=== PATIENT | female | born 1925 | race Caucasian/White ===

== ENCOUNTER 2017-01-10 09:22 | Inpatient (IN) | payer OTHER, BC ==
[~2017-01-10] VITALS: Ht 157.5 cm; Wt 54.0 kg
[~2017-01-10 09:22] MED LIST: COUMADIN1 MG PO; DUONEB3 ML IH; FOSAMAX70 M1 PO; Levothroid,Synthroid PO; Lovenox SC; NORCO 5/3251 TABLET PO; OYST-CAL D, OS500 M1 PO; PAXIL10 MG PO; PROAIR HFA8.5 GM IH; SALINE MIST45 ML BOTH NARES; SENOKOT S,PE1 TABLET PO; SYNTHROID100 MCG PO; SYNTHROID75 MCG PO; THERAGRAN1 TABLET PO; Tylenol Regular Stre PO; Vicodin,Norco 5/325 PO; XANAX PO; XANAX0.25 MG PO; Xalatan 0.005% Ophth
[2017-01-10 10:40] LABS: EOSINOPHIL (%) 1.2 % (0-5); EOSINOPHIL COUNT 0.1 K/uL (0-0.3); HEMATOCRIT 40.2 % (36.0-46.0); IMMATURE GRANULOCYTE (%) 0.5 % (0.0-0.7); INSTRUMENT ABS NEUTROPHIL CT 6.1 K/uL; LYMPHOCYTE COUNT 1.4 K/uL (1.0-2.8); MCH 30.2 PG (29.0-34.0); MCHC 32.1 G/DL (30.0-36.0); MCV 94.1 FL (83-99); MEAN PLAT.VOLUME 10.1 uM^3 (9.5-12.4); MONOCYTE (%) 6.4 % (3-12); MONOCYTE COUNT 0.5 K/uL (0-0.8); NEUTROPHIL (%) 74.5 % (45-76); NEUTROPHIL COUNT 6.1 K/uL (1.8-6.4); PLATELET COUNT 293 K/uL (156-360); RBC DIS.WIDTH-CV 13.1 % (11.8-14.6); RBC DIS.WIDTH-SD 44.9 % (39-53); RED BLOOD COUNT 4.27 M/uL (3.80-5.20); WHITE BLOOD COUNT 8.2 K/uL (4.1-10.2)
[2017-01-10 11:04] LABS: TROP-I INTERPRETATION NEGATIVE; TROPONIN-I 0.02 ng/mL (0.0-0.30)
[2017-01-10 12:06] LABS: CHLORIDE 99 mEq/L (99-109); SODIUM 138 mEq/L (136-147)
[2017-01-10 12:08] LABS: GLUCOSE 86 mg/dL (70-99)
[2017-01-10 12:10] LABS: ANION GAP 11 MEQ/L (2-14); TOTAL BILIRUBIN 0.7 mg/dL (0.0-1.0)
[2017-01-10 12:12] LABS: ALKALINE PHOSPHATASE 93 IU/L (3-129); GFR ESTIMATE (CALCULATED) > 59 mL/min/
[2017-01-10 12:13] LABS: UREA NITROGEN (BUN) 14 mg/dL (9-23)
[2017-01-10 14:26] LABS: ADD MIUA? YES; BILIRUBIN NEGATIVE; BLOOD NEGATIVE; COLOR YELLOW ((YELLOW)); GLUCOSE (STRIP) NEGATIVE; KETONES 20; LEUKOCYTES TRACE; NITRITE NEGATIVE; PROTEIN (STRIP) NEGATIVE
[2017-01-10 14:33] LABS: BACTERIA NONE SEEN /HPF; EPITHELIAL CELLS RARE /HPF; MUCUS NONE SEEN /LPF; RED BLOOD CELLS 0-5 /HPF (0-5); UCUL ADDED? NO; WHITE BLOOD CELLS 0-5 /HPF (0-5)
[2017-01-10 14:47] LABS: SPECIFIC GRAVITY 1.068 (1.000-1.030)
[2017-01-10] MEDS ORDERED: SYSTANE BALANCE10 ML BOTH EYES (15:10)
[2017-01-10 17:51] VITALS: BP 127/79
[2017-01-10 19:42] LABS: TROP-I INTERPRETATION NEGATIVE; TROPONIN-I < 0.01 ng/mL (0.0-0.30)
[2017-01-10 20:00] VITALS: BP 115/55
[2017-01-11] VITALS: BP 122/66
[2017-01-11 03:51] LABS: CHLORIDE 106 mEq/L (99-109); POTASSIUM 4.1 mEq/L (3.7-5.4); SODIUM 138 mEq/L (136-147)
[2017-01-11 03:53] LABS: GLUCOSE 74 mg/dL (70-99)
[2017-01-11 03:55] LABS: ANION GAP 8 MEQ/L (2-14)
[2017-01-11 03:57] LABS: GFR ESTIMATE (CALCULATED) > 59 mL/min/
[2017-01-11 03:58] LABS: UREA NITROGEN (BUN) 13 mg/dL (9-23)
[2017-01-11 04:00] VITALS: BP 128/63
[2017-01-11 04:05] LABS: TROP-I INTERPRETATION NEGATIVE; TROPONIN-I < 0.01 ng/mL (0.0-0.30)
[2017-01-11 07:57] VITALS: BP 143/74
[2017-01-11 11:31] VITALS: BP 109/57
[2017-01-11 14:52] VITALS: BP 120/69
[2017-01-11 20:00] VITALS: BP 120/69
[2017-01-12] VITALS: BP 133/73
[2017-01-12 03:44] VITALS: BP 150/75
[2017-01-12 07:58] VITALS: BP 149/79
[2017-01-12] MEDS ORDERED: AUGMENTIN875 MG PO (09:36)
[2017-01-12] MEDS ORDERED: LIDODERM 5% P1 PATCH TD (10:39)
[2017-01-12 11:25] VITALS: BP 148/78
== END 2017-01-12 11:56 | disposition home health service (06) | DRG 190 ==
LOC: EME 09:22 → EDOF 14:46 → 5SOUTH 16:57
PROVIDERS: Emergency Medicine; Internal Medicine
DX: J41.8 Mixed simple and mucopurulent chronic bronchitis (principal); J13 Pneumonia due to Streptococcus pneumoniae; M84.48XA Pathological fracture, other site, initial encounter for fracture; J98.11 Atelectasis; R09.02 Hypoxemia; J20.8 Acute bronchitis due to other specified organisms; R00.0 Tachycardia, unspecified; M54.9 Dorsalgia, unspecified; J45.909 Unspecified asthma, uncomplicated; F32.9 Major depressive disorder, single episode, unspecified; J98.09 Other diseases of bronchus, not elsewhere classified; E03.9 Hypothyroidism, unspecified; Z79.01 Long term (current) use of anticoagulants; Z88.5 Allergy status to narcotic agent; Z86.010 Personal history of colon polyps; Z96.643 Presence of artificial hip joint, bilateral; Z09 Encounter for follow-up examination after completed treatment for conditions other than malignant neoplasm
CPT/HCPCS: 71275; 72129; 80048; 80053; 81003; 83880; 84484; 85025; 87040; 93005; 94640; 94640 76; 94799; 99202; 99281; 99285; J0696; J1650; J2405; J3010; J7030; J7050

== ENCOUNTER 2017-04-01 17:13 | Emergency (ER) | payer OTHER, BC ==
[~2017-04-01] VITALS: Ht 162.6 cm; Wt 45.8 kg
[~2017-04-01 17:13] MED LIST changes: +AUGMENTIN875 MG PO; +LIDODERM 5% P1 PATCH TD; +SYSTANE BALANCE10 ML BOTH EYES
[2017-04-01 18:28] LABS: HEMATOCRIT 36.9 % (36.0-46.0); MCH 30.8 PG (29.0-34.0); MCHC 32.8 G/DL (30.0-36.0); MCV 93.9 FL (83-99); MEAN PLAT.VOLUME 10.4 uM^3 (9.5-12.4); PLATELET COUNT 189 K/uL (156-360); RBC DIS.WIDTH-SD 44.8 % (39-53); RED BLOOD COUNT 3.93 M/uL (3.80-5.20); WHITE BLOOD COUNT 10.4 K/uL (4.1-10.2)
[2017-04-01 18:29] LABS: CHLORIDE 99 mEq/L (99-109); PROTHROMBIN TIME 10.5 SEC (10.2-12.9); SODIUM 136 mEq/L (136-147)
[2017-04-01 18:31] LABS: GLUCOSE 101 mg/dL (70-99); PTT 32.1 SEC (25-37)
[2017-04-01 18:32] LABS: ANION GAP 12 MEQ/L (2-14)
[2017-04-01 18:35] LABS: GFR ESTIMATE (CALCULATED) > 59 mL/min/; UREA NITROGEN (BUN) 20 mg/dL (9-23)
[2017-04-01 18:42] LABS: TROP-I INTERPRETATION NEGATIVE; TROPONIN-I < 0.01 ng/mL (0.0-0.30)
[2017-04-01] MEDS ORDERED: PERCOCET 5/31 TABLET PO (19:14)
[2017-04-01 20:55] VITALS: BP 128/82
== END 2017-04-01 20:58 | disposition home or self-care (01) ==
LOC: EME 17:13
PROVIDERS: Emergency Medicine
DX: S20.219A Contusion of unspecified front wall of thorax, initial encounter (principal); R07.9 Chest pain, unspecified; W07.XXXA Fall from chair, initial encounter
CPT/HCPCS: 71020; 80048; 84484; 85027; 85610; 85730; 93005; 99281; 99284